=== PATIENT | male | born 1945 | race Caucasian/White ===

== ENCOUNTER 2017-10-27 20:56 | Inpatient (IN) | payer MEDICARE, MEDICAID ==
[~2017-10-27] VITALS: Ht 167.6 cm; Wt 83.5 kg
[2017-10-27 20:58] VITALS: BP 83/47
[2017-10-27 21:25] LABS: ABSOLUTE BASOPHILS 0.1 thou/uL (0.0-0.2); ABSOLUTE EOSINOPHILS 0.6 thou/uL (0.0-0.7); ABSOLUTE LYMPHOCYTES 1.4 thou/uL (0.8-5.3); ABSOLUTE MONOCYTES 0.8 thou/uL (0.0-1.2); ABSOLUTE NEUTROPHILS 5.7 thou/uL (1.6-8.1); BASOPHILS 0.9 %; HEMATOCRIT 43.9 % (42.0-52.0); LYMPHOCYTES 16.3 %; MCH 32.3 pg (26.0-34.0); MCHC 34.1 g/dL (28.0-37.0); MCV 94.7 fL (80.0-100.0); MONOCYTES 9.1 %; MPV 8.3 fl. (7.2-11.1); NUCLEATED RBCS 0 /100WBC; PLATELET COUNT* 251 thou/uL (150-400); POLYS 66.7 %; RBC 4.64 mil/uL (4.50-6.00); RDW-CV 14.7 % (10.5-14.5); WBC 8.6 thou/uL (4.0-11.0)
[2017-10-27 21:36] LABS: ANION GAP 11 mmol/L (7-16); BUN 42 mg/dL (7-18); CALCIUM 8.8 mg/dL (8.5-10.1); CHLORIDE 100 mmol/L (98-107); CO2 26 mmol/L (21-32); CREATININE 5.4 mg/dL (0.6-1.3); GLUCOSE 114 mg/dL (70-99); POTASSIUM 4.1 mmol/L (3.5-5.1); SODIUM 137 mmol/L (136-145)
[2017-10-27 21:39] LABS: APTT 27.8 Seconds (25.0-31.3); INR 1.1; PROTIME 10.8 Seconds (9.20-11.50)
[2017-10-27 21:47] LABS: ALBUMIN 3.1 g/dL (3.4-5.0); ALKALINE PHOSPHATASE 52 U/L (46-116); NT-PRO BRAIN NAT PEPTIDE 106 pg/mL (<300); SGOT 14 U/L (15-37); SGPT 17 U/L (30-65); TOTAL BILIRUBIN 0.5 mg/dL (<0.1-1.0); TOTAL PROTEIN 6.6 g/dL (6.4-8.2); TROPONIN-I LEVEL <0.06 ng/mL (<0.06)
[2017-10-27] MEDS ORDERED: ULTRAM 50MG TAB50 MG PO (21:51)
[2017-10-27] MEDS ORDERED: LISINOPRIL5 MG PO (21:52)
[2017-10-27] MEDS ORDERED: LYRICA 50 MG50 MG PO (21:52)
[2017-10-27] MEDS ORDERED: HYDROCHLOROTH12.5 M1 PO (21:53)
[2017-10-27] MEDS ORDERED: CYCLOSPORINE25 MG PO (22:00)
[2017-10-28] VITALS (40 sets, daily range): BP systolic 77–139; BP diastolic 40–74
--- NOTE | 2017-10-28 01:20 | NUR ---
ADMITTED PT TO ICU ROOM 5 AT 0010. PT ADMITTED FOR ACUTE RENAL FAILURE AND HYPOTENSION. PT RECIEVED 2 LITERS NORMAL SALINE IV IN ED. RIGHT JUGULAR TRIPLE LUMEN CENTRAL LINE IN RIGHT INTERNAL JUGULAR VEIN. LEVOPHED INFUSING AT 2 MCG/MINUTE, HEART RATE AND BLOOD PRESSURE WITHIN NORMAL LIMITS. PT GIVEN BOX LUNCH PER REQUEST. CALL LIGHT IN REACH. PT DEMONSTRATES PROPER USE.
--- NOTE | 2017-10-28 05:20 | NUR ---
PT REMAINS ON LEVOPHED TO KEEP MAP > 65. PT TO BE SEEN BY NEPHROLOGY TODAY FOR RENAL FAILURE.
[2017-10-28 08:05] LABS: HEMATOCRIT 38.3 % (42.0-52.0); HEMOGLOBIN 13.1 gm/dL (14.0-18.0); MCH 32.4 pg (26.0-34.0); MCHC 34.3 g/dL (28.0-37.0); MCV 94.6 fL (80.0-100.0); MPV 8.5 fl. (7.2-11.1); RBC 4.05 mil/uL (4.50-6.00); RDW-CV 14.4 % (10.5-14.5); WBC 7.3 thou/uL (4.0-11.0)
[2017-10-28 08:22] LABS: CALCIUM 7.6 mg/dL (8.5-10.1); CREATININE 2.6 mg/dL (0.6-1.3); MAGNESIUM 1.8 mg/dL (1.8-2.4)
--- NOTE | 2017-10-28 09:19 | NUR ---
0730 ASSUMED CARE OF PATIENT. PLEASE SEE DOCUMENTED ASSESSMENT. DR HECTOR TO SEE PATIENT. ORDERS NOTED AND CVP MONITORING COMMENCED. PT IS ON LEVOPHED DRIP
--- NOTE | 2017-10-28 09:34 | EKG ---
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1945 Requested By: Philip Lewis Order Number: [id number] MD: Michele Lott Measurements Intervals [place] Rate: 92 P: 17 ID: 125 QRS: -32 QRSD: 89 T: 56 QT: 357 QTc: 442 Interpretive Statements Sinus rhythm Left axis deviation Abnormal R-wave progression, late transition ST elevation suggests acute pericarditis Baseline wander in lead(s) II No previous ECG available for comparison Electronically Signed On 10-28-2017 9:33:49 CDT by Michele Lott [email or web address] <ELECTRONICALLY SIGNED> By: Michele Lott MD, FAC 10/28/17 0933 2145 [id number] Michele Lott MD, [facility] /EPI
[2017-10-28 09:51] LABS: URINE POTASSIUM-RANDOM 28.7 mmol/L
[2017-10-28 09:52] LABS: URINE BILIRUBIN NEGATIVE (Negative); URINE BLOOD NEGATIVE (Negative); URINE CLARITY CLEAR; URINE COLOR YELLOW; URINE GLUCOSE-RANDOM NEGATIVE (Negative); URINE KETONES NEGATIVE (Negative); URINE LEUKOCYTES-REFLEX NEGATIVE (Negative); URINE NITRITE-REFLEX NEGATIVE (Negative); URINE PROTEIN NEGATIVE (Negative); URINE SPECIFIC GRAVITY 1.025 (1.005-1.030); URINE UROBILINOGEN 0.2 E.U./dl (0.2-1.0)
--- NOTE | 2017-10-28 11:42 | 2DMMODE ---
[place] [address] 2 D/M-MODE ECHOCARDIOGRAM Name: VIRGIL DELGADO Room: [address] IN [facility]#: [id number] Admission: 10/27/17 Attend Phys: Robin Hairston, Discharge: Date of : 47 Date of Service: 10/28/17 1142 Report #: [id number] THIS REPORT FOR: //name// APPROVED REPORT Study performed: 10/28/2017 10:18:37 EXAM: Comprehensive 2D, Doppler, and color-flow Echocardiogram Patient Location: In-Patient Room #: [facility] Status: routine BSA: 1.92 HR: 70 bpm BP: 124/70 mmHg Rhythm: NSR Other Information Study Quality: Good Indications Abnormal ECG Hypotension 2D Dimensions LVEF(%): 87.03 (>50%) IVSd: 10.71 (7-11mm) LVOT Diam: 19.61 (18-24mm) LVDd: 48.81 mm PWd: 10.54 (7-11mm) Ascending Ao: 33.10 (22-36mm) LVDs: 21.05 (25-40mm) Aortic Root: 28.95 mm Ellington's LVEF: 87.03 % Volumes Left Atrial Volume (Systole) LA ESV Index: 19.50 mL/m2 Aortic Valve AoV Peak Dominick.: 1.58 m/s AO Peak Gr.: 10.02 mmHg LVOT Max P.19 mmHg AO Mean Gr.: 5.22 mmHg LVOT Mean P.59 mmHg LVOT Max V: 1.14 m/s AO V2 VTI: 29.43 cm LVOT Mean V: 0.74 m/s RYLEY (VTI): 2.30 cm2 LVOT V1 VTI: 22.42 [place] [address] 2 D/M-MODE ECHOCARDIOGRAM Name: VIRGIL DELGADO Room: [address] IN [facility]#: [id number] Admission: 10/27/17 Attend Phys: Robin Hairston, Discharge: Date of : 47 Date of Service: 10/28/17 1142 Report #: [id number] E/A Ratio: 1.09 MV Decel. Time: 184.40 ms MV E Max Dominick.: 0.83 m/s MV PHT: 53.48 ms MVA (PHT): 4.11 cm2 TDI E/Lateral E': 8.30 E/Medial E': 7.55 Medial E' Dominick.: 0.11 m/s Lateral E' Dominick.: 0.10 m/s Pulmonary Valve PV Peak Dominick.: 1.26 m/s PV Peak Gr.: 6.37 mmHg Left Ventricle The left ventricle is normal size. There is normal LV segmental wall motion. Moderate concentric left ventricular hypertrophy. Left ventricular systolic function is normal. The left ventricular ejection fraction is within the normal range. LVEF is 55-60%. Grade I - abnormal relaxation pattern. Right Ventricle The right ventricle is normal size. The right ventricular systolic function is normal. Atria Left atrium is borderline dilated. The right atrium size is normal. Aortic Valve The aortic valve is normal in structure. No aortic regurgitation is present. There is no aortic valvular stenosis. Mitral Valve The mitral valve is normal in structure. Trace mitral regurgitation. No evidence of mitral valve stenosis. Tricuspid Valve The tricuspid valve is normal in structure. Unable to assess PA pressure. Trace tricuspid regurgitation. Pulmonic Valve The pulmonary valve is normal in structure. Trace pulmonic regurgitation[place] [address] 2 D/M-MODE ECHOCARDIOGRAM Name: VIRGIL DELGADO Room: [address]#: [id number] Admission: 10/27/17 Attend Phys: Robin Hairston, Discharge: Date of : 47 Date of Service: 10/28/17 1142 Report #: [id number] The aortic root is normal in size. IVC is normal in size and collapses with >50% inspiration Pericardium There is no pericardial effusion. <Conclusion> LVEF is 55-60%. There is normal LV segmental wall motion. Trace mitral regurgitation. Grade I - abnormal relaxation pattern. Left atrium is borderline dilated. There is no aortic valvular stenosis. No aortic regurgitation is present. <ELECTRONICALLY SIGNED> By: Michele Lott MD, FACC 10/28/17 1142 1142 1142 Michele Lott MD, FACC /INF
--- NOTE | 2017-10-28 12:45 | NUR ---
ECHO COMPLETE. ULTRASOUND SAID TO LET PATIENT HAVE CLEAR LIQUID LUNCH,THEN THEY WILL DO RENAL ULTRASOUND LATER THIS AFTERNOON. WEANING LEVOPHED DRIP
--- NOTE | 2017-10-28 13:47 | NUR ---
BATHED. PATIENT HAS PSORIASIS BEHIND EARS AND SCAR ON R LOWER BUTTOCKS WHICH HE REPORTS FROM AN "INFECTED HAIR." ALSO HAS HEALING BLISTER ON RIGHT DORSAL ANKLE. DAUGHTER CALLED AND PATIENT SPOKE WITH HER ON TELEPHONE
--- NOTE | 2017-10-28 15:12 | NUR ---
RENAL ULTRASOUND COMPLETE.
--- NOTE | 2017-10-28 15:53 | NUR ---
PATIENT WILL SOMETIMES DESATURATE TO 87-88% WHEN ASLEEP;USUALLY BUMPS UP WHEN O2 SAT ALARMS AND RETURNS TO 95-98% ON ROOM AIR. DOES NOT MOUTH BREATHE
--- NOTE | 2017-10-28 16:13 | NUR ---
SEEN BY DR HERMOSILLO. ORDERS NOTED.
--- NOTE | 2017-10-28 16:39 | NUR ---
AT EDGE OF BED FOR ORTHOSTATICS. DENIES DIZZINESS
--- NOTE | 2017-10-28 17:03 | NUR ---
PATIENT PROGRESSING TOWARDS GOALS. LABS IMPROVED. ECHO COMPLETED WELL RENAL ULTRASOUND. VSS. WEANED OFF OF LEVOPHED. 02 REPLACED DUE TO SLEEP APNEA. PT STATES HE WAS SUPPOSED TO HAVE A SLEEP STUDY BUT DID NOT HAVE TRANSPORTATION. PATIENT HAS TREMORS BUT ALSO EPISODIC MORE VILENT SHAKING OF UPPER EXTREMITIES. PT STATES THAT THIS IS A SYMPTOM OF HIS PARKINSONS AND THAT THERE IS NOTHING TO DO ABOUT IT. DIET ADVANCED FOR EVENING MEAL. DAUGHTER CALLED.
--- NOTE | 2017-10-28 19:30 | NUR ---
INITAL ASSESSMENT COMPLETED AT 1915. LAB VALUES REVIEWED WITH PT. DISCUSSED DISCONTINUED ANTIHYPERTENSIVE MEDS. PT REPORTS FEELING MUCH BETTER, DENIES PAIN OR DISCOMFORT. CALL LIGHT IN REACH, PT DEMONSTRATES PROPER USE.
[2017-10-28 23:08] LABS: GLYCOHEMOGLOBIN (HGB A1C) 5.3 % (4.8-5.6)
[2017-10-29] VITALS (9 sets, daily range): BP systolic 137–153; BP diastolic 63–79
[2017-10-29 02:23] LABS: HEMATOCRIT 36.9 % (42.0-52.0); HEMOGLOBIN 12.3 gm/dL (14.0-18.0); MCH 32.1 pg (26.0-34.0); MCHC 33.2 g/dL (28.0-37.0); MCV 96.4 fL (80.0-100.0); MPV 8.3 fl. (7.2-11.1); RBC 3.83 mil/uL (4.50-6.00); RDW-CV 14.4 % (10.5-14.5); WBC 7.4 thou/uL (4.0-11.0)
[2017-10-29 02:54] LABS: CALCIUM 7.4 mg/dL (8.5-10.1); CREATININE 1.4 mg/dL (0.6-1.3); MAGNESIUM 1.4 mg/dL (1.8-2.4); POTASSIUM 4.2 mmol/L (3.5-5.1)
[2017-10-29 03:45] LABS: SMEAR FOR EOSINOPHILS No Eosinophils Seen
--- NOTE | 2017-10-29 08:09 | NUR ---
ASSUMED CARE OF PATIENT AFTER RECIEVING BEDSIDE REPORT. ASSESSMENT COMPLETED, VSS. PATIENT DENIES COMPLAINTS AND CONCERNS AT THIS TIME. PER DR. HECTOR PATIENT HAS PENDING DISCHARGE PENDING RECOMMENDATIONS FROM NEPHROLOGY. PATIENT UP TO CHAIR WITH STAND BY ASSIST. PATIENT HOPEFUL TO DISCHARGE. PATIENT DOWNGRADED TO MED/SURG AT THIS TIME. CALL LIGHT WITHIN REACH, USE REINFORCED. WILL CONTINUE TO MONITOR.
--- NOTE | 2017-11-02 09:34 | CON ---
[address] [address] CONSULTATION Name: VIRGIL DELGADO Room: [address] IN .R.#: [id number] Admission: 10/27/17 Attend Phys: Robin Hairston MD Discharge: 10/29/17 Date of : 47 Report #: [id number] THIS REPORT FOR: //name// CC: FAHEEM Hairston Physician staff NEPHROLOGY CONSULTATION REASON FOR CONSULTATION: Acute kidney injury. CONSULTING PHYSICIAN: Robin Hairston M.D. HISTORY OF PRESENT ILLNESS: A 72-year-old gentleman who was admitted with dizziness. He has significantly low blood pressures down into the 70s systolic. He was started on vasopressors and was aggressively fluid resuscitated. His vasopressors had been weaned off. He does have a history of psoriatic arthritis and hypertension. He is on cyclosporine as well as AMELIA inhibitor and a thiazide diuretic. He has no underlying history of kidney disease. Denies any NSAID use. Denies any nausea, vomiting or diarrhea. He appears comfortable right now and has no complaints. REVIEW OF SYSTEMS: Constitutional, psych, heme, eyes, ENT, respiratory, cardiac, GI, , endocrine all negative, except as documented above. PAST MEDICAL HISTORY: Psoriatic arthritis, hypertension, degenerative joint disease and history of Parkinson's. SOCIAL HISTORY: No tobacco. FAMILY HISTORY: No known kidney disease. CURRENT MEDICATIONS: Reviewed. PHYSICAL EXAMINATION: VITAL SIGNS: Blood pressure 107/58, pulse 79 and temperature 37.7. GENERAL EXAMINATION: No acute distress. EYES: Extraocular movements intact. EARS: Externally normal. CARDIOVASCULAR: Regular rate and rhythm. LUNGS: No crackles. ABDOMEN: Soft. LYMPHATICS: No pitting edema. PSYCHIATRIC: Awake and alert. LABORATORY DATA: White cell count 7.3, hemoglobin 13.1 and platelets 229,000. Sodium 138, potassium 4, chloride 107, bicarbonate 24, BUN 36, creatinine 2.6, [place] [address] CONSULTATION Name: VIRGIL DELGADO Room: [address]#: [id number] Admission: 10/27/17 Attend Phys: Robin Hairston MD Discharge: 10/29/17 Date of : 47 Report #: [id number] glucose 143, calcium 7.6 and magnesium 1.8. ASSESSMENT: 1. Acute kidney injury in the setting of hypotension and likely a component of volume depletion while on hydrochlorothiazide and lisinopril. U/A was okay. Baseline creatinine unknown. Admission creatinine was 5.4. Kidney ultrasound was okay. 2. Hypotension, off vasopressors now. 3. Recently diagnosed obstructive sleep apnea, not yet on CPAP. 4. Psoriatic arthritis. 5. History of hypertension. PLAN: 1. Continue IV fluids. 2. Check cyclosporine level. 3. Discontinue the milk of magnesia. He did also receive a dose of Toradol. Would avoid all NSAIDs. 4. Check labs again in the a.m. Thank you for requesting my opinion in the care and management of this patient. <ELECTRONICALLY SIGNED> By: Fabiola Regalado MD 11/02/17 0934 1619 [id number] Regalado MD /nt
== END 2017-10-29 10:08 | disposition home or self-care (01) | DRG 314 ==
LOC: M.ERS 20:56 → M.TBA-ER 23:29 → M.ICU 23:29
PROVIDERS: Family Medicine; ADMIT Internal Medicine
PROC: 02HV33Z Insertion of Infusion Device into Superior Vena Cava, Percutaneous Approach (ICD-10-PCS; principal; 2017-10-27)
DX: I95.9 Hypotension, unspecified (principal); R57.1 Hypovolemic shock; N17.0 Acute kidney failure with tubular necrosis; M19.90 Unspecified osteoarthritis, unspecified site; G20 Parkinson's disease; I10 Essential (primary) hypertension; L40.50 Arthropathic psoriasis, unspecified; I70.0 Atherosclerosis of aorta; T46.4X5A Adverse effect of angiotensin-converting-enzyme inhibitors, initial encounter; Z79.899 Other long term (current) drug therapy; Z88.8 Allergy status to other drugs, medicaments and biological substances; Y92.89 Other specified places as the place of occurrence of the external cause